=== PATIENT | female | born 1970 | race American Indian/Alaskan Native ===

== ENCOUNTER 2020-09-12 13:22 | Inpatient (IN) | payer OTHER ==
[2020-09-12 13:40] VITALS: BMI 31.8
[2020-09-12] MEDS ORDERED: SODIUM CHLORIDE 1,000 ML IV STA (14:29)
[2020-09-12 15:20] LABS: BASO % 0.2 % (0-2.0); EOS % 0.1 % (0-4.5); HEMATOCRIT 38.5 % (32.4-45.2); HEMOGLOBIN 12.5 GM/dL (10.7-15.3); LYMPH % 15.7 % (8-40); MCH 28.8 pg (25.7-33.7); MCHC 32.4 g/dl (32.0-36.0); MEAN CELL VOLUME 88.8 fl (80-96); MEAN PLT VOLUME 8.5 fl (7.5-11.1); MONO % 4.7 % (3.8-10.2); NEUT % 79.3 % (42.8-82.8); PLATELET COUNT 371 K/MM3 (134-434); RBC 4.34 M/mm3 (3.60-5.2); RDW 13.9 % (11.6-15.6); WHITE BLOOD COUNT 17.1 K/mm3 (4.0-10.0)
[2020-09-12 15:23] LABS: URINE APPEARANCE CLEAR; URINE BILIRUBIN NEGATIVE (NEGATIVE); URINE COLOR YELLOW; URINE GLUCOSE (UA) NEGATIVE (NEGATIVE); URINE KETONE NEGATIVE (NEGATIVE); URINE LEUK ESTERASE NEGATIVE (NEGATIVE); URINE NITRITE NEGATIVE (NEGATIVE); URINE PROTEIN NEGATIVE (NEGATIVE)
[2020-09-12 15:27] LABS: INR 1.15 (0.83-1.09); PROTHROMBIN TIME (PATIENT) 13.8 SEC (9.7-13.0)
[2020-09-12 15:39] LABS: POTASSIUM 3.4 mmol/L (3.5-5.1)
[2020-09-12 15:41] LABS: ALBUMIN 3.2 g/dl (3.4-5.0); CALCIUM 9.4 mg/dL (8.5-10.1)
[2020-09-12 15:42] LABS: BLOOD UREA NITROGEN 5.7 mg/dL (7-18)
[2020-09-12 15:45] LABS: CREATININE 0.6 mg/dL (0.55-1.3)
[2020-09-12 15:46] LABS: BILIRUBIN,TOTAL 0.2 mg/dL (0.2-1); TOT PROT 8.1 g/dl (6.4-8.2)
[2020-09-12] MEDS ORDERED: morphine CARPU-JECT 4 MG/1 ML DISP.SYRIN IVPUSH ONE (16:49)
[2020-09-12] MEDS ORDERED: ONDANSETRON 4 MG/2 ML VIAL IVPUSH ONE (16:49)
[2020-09-12] MEDS ORDERED: PIPERACILLIN/TAZOB 3.375 GM 3.375 GM in DEXTROSE 5%-WATER - 50 ML IVPB ONE (16:49)
[2020-09-12] MEDS ORDERED: ONDANSETRON 4 MG/2 ML VIAL ONE (17:02)
[2020-09-12] MEDS ORDERED: morphine SULFATE 4 MG/ML VIAL ONE (17:02)
[2020-09-12] MEDS ORDERED: PIPERACILLIN/TAZOB 3.375 GM 3.375 GM/50 ML BAG IVPB ONE (17:02)
[2020-09-13] MEDS ORDERED: ONDANSETRON 4 MG/2 ML VIAL IVPUSH PRN (01:09)
[2020-09-13] MEDS ORDERED: morphine CARPU-JECT 2 MG/1 ML DISP.SYRIN IVPUSH PRN (01:09)
[2020-09-13] MEDS ORDERED: MORPHINE SULFATE 2 MG/ML VIAL ONE ×2 (01:35→06:46)
[2020-09-13] MEDS: DEXTROSE 5%-0.45% SALINE 1,000 ML IV SCH ×2 (02:39→17:01)
[2020-09-13] MEDS: MORPHINE SULFATE 2 MG/ML VIAL IVPUSH PRN (06:53)
[2020-09-13 08:21] LABS: BASO % 0.2 % (0-2.0); EOS % 0.2 % (0-4.5); HEMATOCRIT 33.6 % (32.4-45.2); HEMOGLOBIN 10.8 GM/dL (10.7-15.3); LYMPH % 16.1 % (8-40); MCH 28.3 pg (25.7-33.7); MCHC 32.1 g/dl (32.0-36.0); MEAN CELL VOLUME 88.3 fl (80-96); MEAN PLT VOLUME 8.4 fl (7.5-11.1); NEUT % 77.5 % (42.8-82.8); PLATELET COUNT 320 K/MM3 (134-434); RBC 3.81 M/mm3 (3.60-5.2); RDW 13.8 % (11.6-15.6); WHITE BLOOD COUNT 14.8 K/mm3 (4.0-10.0)
[2020-09-13 08:32] LABS: POTASSIUM 3.7 mmol/L (3.5-5.1)
[2020-09-13 08:41] LABS: ALBUMIN 2.5 g/dl (3.4-5.0); BLOOD UREA NITROGEN 3.8 mg/dL (7-18); CALCIUM 8.7 mg/dL (8.5-10.1)
[2020-09-13 08:45] LABS: CREATININE 0.5 mg/dL (0.55-1.3)
[2020-09-13 08:46] LABS: TOT PROT 6.4 g/dl (6.4-8.2)
[2020-09-13 09:17] LABS: BILIRUBIN,TOTAL 0.3 mg/dL (0.2-1)
[2020-09-13] MEDS ORDERED: PIPERACILLIN/TAZOB 3.375 GM 3.375 GM in DEXTROSE 5%-WATER - 50 ML IVPB SCH (10:00)
[2020-09-13] MEDS ORDERED: PIPERACILLIN/TAZOB 3.375 GM 3.375 GM/50 ML BAG IVPB ONE (10:07)
[2020-09-13] MEDS ORDERED: ENOXAPARIN NA (PORCINE) 40 MG/0.4 ML DISP.SYRIN SQ ONE (10:29)
[2020-09-13] MEDS: ENOXAPARIN NA (PORCINE) 40 MG/0.4 ML DISP.SYRIN SQ SCH (10:30)
[2020-09-13] MEDS: PIPERACILLIN/TAZOB 3.375 GM 3.375 GM/50 ML BAG IVPB SCH (18:59)
[2020-09-14] MEDS: MORPHINE SULFATE 2 MG/ML VIAL IVPUSH PRN ×3 (00:45→14:43)
[2020-09-14] MEDS: PIPERACILLIN/TAZOB 3.375 GM 3.375 GM/50 ML BAG IVPB SCH ×3 (01:40→18:28)
[2020-09-14] MEDS: DEXTROSE 5%-0.45% SALINE 1,000 ML IV SCH ×3 (01:42→22:12)
[2020-09-14] MEDS: ENOXAPARIN NA (PORCINE) 40 MG/0.4 ML DISP.SYRIN SQ SCH (09:22)
[2020-09-14 09:24] LABS: BASO % 0.4 % (0-2.0); EOS % 0.5 % (0-4.5); HEMATOCRIT 35.2 % (32.4-45.2); HEMOGLOBIN 11.2 GM/dL (10.7-15.3); LYMPH % 17.7 % (8-40); MCH 28.1 pg (25.7-33.7); MCHC 31.9 g/dl (32.0-36.0); MEAN CELL VOLUME 88.1 fl (80-96); MEAN PLT VOLUME 8.4 fl (7.5-11.1); MONO % 4.4 % (3.8-10.2); PLATELET COUNT 375 K/MM3 (134-434); RBC 3.99 M/mm3 (3.60-5.2); RDW 13.7 % (11.6-15.6); WHITE BLOOD COUNT 15.3 K/mm3 (4.0-10.0)
[2020-09-14 09:33] LABS: POTASSIUM 3.7 mmol/L (3.5-5.1)
[2020-09-14 09:38] LABS: ALBUMIN 2.5 g/dl (3.4-5.0); BLOOD UREA NITROGEN 3.1 mg/dL (7-18)
[2020-09-14 09:42] LABS: CREATININE 0.6 mg/dL (0.55-1.3)
[2020-09-14 09:43] LABS: BILIRUBIN,TOTAL 0.3 mg/dL (0.2-1); TOT PROT 6.6 g/dl (6.4-8.2)
[2020-09-14 09:48] LABS: CALCIUM 8.9 mg/dL (8.5-10.1)
[2020-09-14] MEDS: ACETAMINOPHEN 325 MG TABLET (FP) PO PRN (18:27)
[2020-09-14] MEDS ORDERED: PIPERACILLIN/TAZOB 3.375 GM 3.375 GM/50 ML BAG IVPB SCH (18:45)
[2020-09-14] MEDS: DOCUSATE SODIUM 100 MG CAPSULE (FP) PO SCH (22:12)
[2020-09-15] MEDS: DEXTROSE 5%-0.45% SALINE 1,000 ML IV SCH (01:24)
[2020-09-15] MEDS ORDERED: PIPERACILLIN/TAZOBACTAM 3.375 GM VIAL IVPB ONE ×3 (01:40→17:56)
[2020-09-15] MEDS ORDERED: DEXTROSE 5%-WATER - 50 ML IVPB ONE ×3 (01:40→17:56)
[2020-09-15] MEDS: ACETAMINOPHEN 325 MG TABLET (FP) PO PRN ×3 (01:53→22:03)
[2020-09-15] MEDS: PIPERACILLIN/TAZOB 3.375 GM 3.375 GM in DEXTROSE 5%-WATER - 50 ML IVPB SCH ×3 (01:53→17:58)
[2020-09-15 08:31] LABS: POTASSIUM 3.4 mmol/L (3.5-5.1)
[2020-09-15 08:33] LABS: ALBUMIN 2.4 g/dl (3.4-5.0); CALCIUM 8.8 mg/dL (8.5-10.1)
[2020-09-15 08:34] LABS: BLOOD UREA NITROGEN 3.9 mg/dL (7-18)
[2020-09-15 08:35] LABS: BASO % 0.5 % (0-2.0); EOS % 0.8 % (0-4.5); HEMATOCRIT 35.6 % (32.4-45.2); HEMOGLOBIN 11.5 GM/dL (10.7-15.3); LYMPH % 16.8 % (8-40); MCH 28.6 pg (25.7-33.7); MCHC 32.3 g/dl (32.0-36.0); MEAN CELL VOLUME 88.7 fl (80-96); MEAN PLT VOLUME 8.2 fl (7.5-11.1); MONO % 6.6 % (3.8-10.2); NEUT % 75.3 % (42.8-82.8); PLATELET COUNT 363 K/MM3 (134-434); RBC 4.01 M/mm3 (3.60-5.2); RDW 13.7 % (11.6-15.6); WHITE BLOOD COUNT 11.8 K/mm3 (4.0-10.0)
[2020-09-15 08:37] LABS: CREATININE 0.6 mg/dL (0.55-1.3)
[2020-09-15 08:38] LABS: BILIRUBIN,TOTAL 0.9 mg/dL (0.2-1); TOT PROT 6.6 g/dl (6.4-8.2)
[2020-09-15] MEDS: ENOXAPARIN NA (PORCINE) 40 MG/0.4 ML DISP.SYRIN SQ SCH (10:03)
[2020-09-15] MEDS: MORPHINE SULFATE 2 MG/ML VIAL IVPUSH PRN (20:28)
[2020-09-15] MEDS: DOCUSATE SODIUM 100 MG CAPSULE (FP) PO SCH (22:04)
[2020-09-16] MEDS ORDERED: DEXTROSE 5%-WATER - 50 ML IVPB ONE ×3 (02:16→17:31)
[2020-09-16] MEDS ORDERED: PIPERACILLIN/TAZOBACTAM 3.375 GM VIAL IVPB ONE ×3 (02:16→17:31)
[2020-09-16] MEDS: PIPERACILLIN/TAZOB 3.375 GM 3.375 GM in DEXTROSE 5%-WATER - 50 ML IVPB SCH ×3 (02:27→17:43)
[2020-09-16 09:52] LABS: BASO % 0.3 % (0-2.0); EOS % 1.3 % (0-4.5); HEMATOCRIT 35.6 % (32.4-45.2); HEMOGLOBIN 11.6 GM/dL (10.7-15.3); LYMPH % 18.9 % (8-40); MCHC 32.5 g/dl (32.0-36.0); MEAN CELL VOLUME 89.3 fl (80-96); MEAN PLT VOLUME 8.3 fl (7.5-11.1); MONO % 4.6 % (3.8-10.2); NEUT % 74.9 % (42.8-82.8); PLATELET COUNT 401 K/MM3 (134-434); POTASSIUM 3.6 mmol/L (3.5-5.1); RBC 3.99 M/mm3 (3.60-5.2); RDW 13.8 % (11.6-15.6); WHITE BLOOD COUNT 12.6 K/mm3 (4.0-10.0)
[2020-09-16] MEDS: ENOXAPARIN NA (PORCINE) 40 MG/0.4 ML DISP.SYRIN SQ SCH (10:05)
[2020-09-16] MEDS: DEXTROSE 5%-0.45% SALINE 1,000 ML IV SCH (10:06)
[2020-09-16 10:09] LABS: ALBUMIN 2.6 g/dl (3.4-5.0); CALCIUM 8.9 mg/dL (8.5-10.1)
[2020-09-16 10:13] LABS: CREATININE 0.6 mg/dL (0.55-1.3)
[2020-09-16 10:15] LABS: BILIRUBIN,TOTAL 0.7 mg/dL (0.2-1)
[2020-09-16 10:28] LABS: BLOOD UREA NITROGEN 2.6 mg/dL (7-18)
[2020-09-16] MEDS: ACETAMINOPHEN 325 MG TABLET (FP) PO PRN ×2 (13:19→21:32)
[2020-09-16] MEDS: DOCUSATE SODIUM 100 MG CAPSULE (FP) PO SCH (21:31)
[2020-09-17] MEDS ORDERED: DEXTROSE 5%-WATER - 50 ML IVPB ONE ×3 (02:03→17:03)
[2020-09-17] MEDS ORDERED: PIPERACILLIN/TAZOBACTAM 3.375 GM VIAL IVPB ONE ×3 (02:03→17:03)
[2020-09-17] MEDS: PIPERACILLIN/TAZOB 3.375 GM 3.375 GM in DEXTROSE 5%-WATER - 50 ML IVPB SCH ×3 (02:31→17:52)
[2020-09-17] MEDS: DEXTROSE 5%-0.45% SALINE 1,000 ML IV SCH (09:45)
[2020-09-17] MEDS: ENOXAPARIN NA (PORCINE) 40 MG/0.4 ML DISP.SYRIN SQ SCH (09:48)
[2020-09-17] MEDS: ACETAMINOPHEN 325 MG TABLET (FP) PO PRN ×2 (10:16→21:46)
[2020-09-17] MEDS: DOCUSATE SODIUM 100 MG CAPSULE (FP) PO SCH (21:45)
[2020-09-18] MEDS ORDERED: PIPERACILLIN/TAZOBACTAM 3.375 GM VIAL IVPB ONE ×3 (00:36→16:29)
[2020-09-18] MEDS ORDERED: DEXTROSE 5%-WATER - 50 ML IVPB ONE ×3 (00:36→16:29)
[2020-09-18] MEDS: DEXTROSE 5%-0.45% SALINE 1,000 ML IV SCH ×2 (01:00→05:13)
[2020-09-18] MEDS: PIPERACILLIN/TAZOB 3.375 GM 3.375 GM in DEXTROSE 5%-WATER - 50 ML IVPB SCH ×3 (02:51→17:13)
[2020-09-18 09:12] LABS: BASO % 0.4 % (0-2.0); EOS % 2.7 % (0-4.5); HEMATOCRIT 35.1 % (32.4-45.2); HEMOGLOBIN 11.6 GM/dL (10.7-15.3); INR 1.17 (0.83-1.09); LYMPH % 32.1 % (8-40); MCH 29.4 pg (25.7-33.7); MCHC 33.2 g/dl (32.0-36.0); MEAN CELL VOLUME 88.5 fl (80-96); MEAN PLT VOLUME 8.2 fl (7.5-11.1); MONO % 5.5 % (3.8-10.2); NEUT % 59.3 % (42.8-82.8); PLATELET COUNT 410 K/MM3 (134-434); PROTHROMBIN TIME (PATIENT) 14.1 SEC (9.7-13.0); RBC 3.97 M/mm3 (3.60-5.2); RDW 13.6 % (11.6-15.6); WHITE BLOOD COUNT 7.4 K/mm3 (4.0-10.0)
[2020-09-18 09:29] LABS: POTASSIUM 3.4 mmol/L (3.5-5.1)
[2020-09-18 09:35] LABS: ALBUMIN 2.6 g/dl (3.4-5.0)
[2020-09-18 09:38] LABS: CREATININE 0.5 mg/dL (0.55-1.3)
[2020-09-18 09:40] LABS: BILIRUBIN,TOTAL 0.3 mg/dL (0.2-1); TOT PROT 6.7 g/dl (6.4-8.2)
[2020-09-18 10:15] LABS: BLOOD UREA NITROGEN 2.8 mg/dL (7-18)
[2020-09-18] MEDS: ENOXAPARIN NA (PORCINE) 40 MG/0.4 ML DISP.SYRIN SQ SCH (10:37)
[2020-09-18] MEDS: DOCUSATE SODIUM 100 MG CAPSULE (FP) PO SCH (21:24)
[2020-09-18] MEDS: ACETAMINOPHEN 325 MG TABLET (FP) PO PRN (21:25)
[2020-09-19] MEDS ORDERED: DEXTROSE 5%-WATER - 50 ML IVPB ONE ×3 (00:30→16:48)
[2020-09-19] MEDS ORDERED: PIPERACILLIN/TAZOBACTAM 3.375 GM VIAL IVPB ONE ×3 (00:30→16:48)
[2020-09-19] MEDS: PIPERACILLIN/TAZOB 3.375 GM 3.375 GM in DEXTROSE 5%-WATER - 50 ML IVPB SCH ×3 (01:16→17:53)
[2020-09-19] MEDS: DEXTROSE 5%-0.45% SALINE 1,000 ML IV SCH ×2 (02:12→17:56)
[2020-09-19] MEDS: ENOXAPARIN NA (PORCINE) 40 MG/0.4 ML DISP.SYRIN SQ SCH (10:48)
[2020-09-19] MEDS: ACETAMINOPHEN 325 MG TABLET (FP) PO PRN (17:51)
[2020-09-19] MEDS: DOCUSATE SODIUM 100 MG CAPSULE (FP) PO SCH (21:17)
[2020-09-20] MEDS ORDERED: DEXTROSE 5%-WATER - 50 ML IVPB ONE ×3 (00:36→18:10)
[2020-09-20] MEDS ORDERED: PIPERACILLIN/TAZOBACTAM 3.375 GM VIAL IVPB ONE ×3 (00:36→18:10)
[2020-09-20] MEDS: PIPERACILLIN/TAZOB 3.375 GM 3.375 GM in DEXTROSE 5%-WATER - 50 ML IVPB SCH ×3 (02:00→18:51)
[2020-09-20] MEDS: DEXTROSE 5%-0.45% SALINE 1,000 ML IV SCH (10:51)
[2020-09-20] MEDS: DOCUSATE SODIUM 100 MG CAPSULE (FP) PO SCH (22:20)
[2020-09-21] MEDS ORDERED: DEXTROSE 5%-WATER - 50 ML IVPB ONE ×3 (01:23→17:43)
[2020-09-21] MEDS ORDERED: PIPERACILLIN/TAZOBACTAM 3.375 GM VIAL IVPB ONE ×3 (01:23→17:43)
[2020-09-21] MEDS: PIPERACILLIN/TAZOB 3.375 GM 3.375 GM in DEXTROSE 5%-WATER - 50 ML IVPB SCH ×3 (01:24→17:58)
[2020-09-21] MEDS: DEXTROSE 5%-0.45% SALINE 1,000 ML IV SCH ×2 (06:20→22:04)
[2020-09-21 09:09] LABS: BASO % 0.5 % (0-2.0); EOS % 1.2 % (0-4.5); HEMATOCRIT 35.4 % (32.4-45.2); HEMOGLOBIN 11.8 GM/dL (10.7-15.3); LYMPH % 30.7 % (8-40); MCH 29.4 pg (25.7-33.7); MCHC 33.3 g/dl (32.0-36.0); MEAN CELL VOLUME 88.2 fl (80-96); MEAN PLT VOLUME 8.7 fl (7.5-11.1); MONO % 5.1 % (3.8-10.2); NEUT % 62.5 % (42.8-82.8); PLATELET COUNT 406 K/MM3 (134-434); RBC 4.01 M/mm3 (3.60-5.2); WHITE BLOOD COUNT 7.4 K/mm3 (4.0-10.0)
[2020-09-21 09:23] LABS: POTASSIUM 3.4 mmol/L (3.5-5.1)
[2020-09-21 09:25] LABS: CALCIUM 8.7 mg/dL (8.5-10.1)
[2020-09-21 09:26] LABS: ALBUMIN 2.7 g/dl (3.4-5.0); BLOOD UREA NITROGEN 4.1 mg/dL (7-18)
[2020-09-21 09:29] LABS: CREATININE 0.7 mg/dL (0.55-1.3)
[2020-09-21 09:30] LABS: BILIRUBIN,TOTAL 0.6 mg/dL (0.2-1)
[2020-09-21 09:31] LABS: TOT PROT 6.8 g/dl (6.4-8.2)
[2020-09-21] MEDS: MULTIVITAMINS (DAILY MVI) TABLET (FP) PO SCH (10:05)
[2020-09-21] MEDS ORDERED: POTASSIUM CHLORIDE TABS 20 MEQ TABLET.ER (FP) PO ONE (19:51)
[2020-09-21] MEDS: DOCUSATE SODIUM 100 MG CAPSULE (FP) PO SCH (22:04)
[2020-09-22] MEDS ORDERED: DEXTROSE 5%-WATER - 50 ML IVPB ONE ×2 (01:36→08:23)
[2020-09-22] MEDS ORDERED: PIPERACILLIN/TAZOBACTAM 3.375 GM VIAL IVPB ONE ×2 (01:36→08:23)
[2020-09-22] MEDS: DEXTROSE 5%-0.45% SALINE 1,000 ML IV SCH (01:50)
[2020-09-22] MEDS: PIPERACILLIN/TAZOB 3.375 GM 3.375 GM in DEXTROSE 5%-WATER - 50 ML IVPB SCH ×2 (01:51→10:15)
[2020-09-22 06:59] VITALS: BP 130/68; PULSE 76; TEMP 98
[2020-09-22 08:45] LABS: POTASSIUM 4.4 mmol/L (3.5-5.1)
[2020-09-22 08:51] LABS: ALBUMIN 2.7 g/dl (3.4-5.0); BLOOD UREA NITROGEN 4.8 mg/dL (7-18); CALCIUM 8.7 mg/dL (8.5-10.1)
[2020-09-22 08:55] LABS: BILIRUBIN,TOTAL 0.3 mg/dL (0.2-1); CREATININE 0.6 mg/dL (0.55-1.3); TOT PROT 6.4 g/dl (6.4-8.2)
[2020-09-22] MEDS: MULTIVITAMINS (DAILY MVI) TABLET (FP) PO SCH (10:15)
== END 2020-09-22 14:01 | disposition home or self-care (01) | DRG 531 ==
LOC: JER 13:22 → JERBED 17:12 → J6WEST-2 09-13 15:48 → J6S 09-14 19:42
PROVIDERS: ADMIT Internal Medicine; ATTEND Internal Medicine
DX: N70.93 Salpingitis and oophoritis, unspecified (principal); D72.829 Elevated white blood cell count, unspecified; R50.9 Fever, unspecified; R10.32 Left lower quadrant pain
CPT/HCPCS: 36415; 71046-TC-FY; 71260-TC; 72192-TC; 74177-TC; 76830-TC; 80053; 81003; 85025; 85610; 85730; 87086; 93005; 93010; 99285-25; C9803; Q9967; U0003

== ENCOUNTER 2020-11-23 12:22 | Inpatient (IN) | payer OTHER ==
[2020-11-23 12:43] VITALS: BMI 31.6
[2020-11-23] MEDS ORDERED: DEXAMETHASONE SOD PHOSPHATE 10 MG/1 ML VIAL IVPUSH ONE (13:21)
[2020-11-23] MEDS ORDERED: DEXAMETHASONE SOD PHOSPHATE 10 MG/1 ML VIAL ONE (14:34)
[2020-11-23 15:06] LABS: BASO % 0.2 % (0-2.0); HEMATOCRIT 41.9 % (32.4-45.2); HEMOGLOBIN 14.1 GM/dL (10.7-15.3); MCHC 33.6 g/dl (32.0-36.0); MEAN PLT VOLUME 9.8 fl (7.5-11.1); MONO % 5.1 % (3.8-10.2); NEUT % 69.7 % (42.8-82.8); PLATELET COUNT 153 K/MM3 (134-434); RDW 15.1 % (11.6-15.6); WHITE BLOOD COUNT 5.1 K/mm3 (4.0-10.0)
[2020-11-23 15:25] LABS: CHLORIDE 105 mmol/L (98-107); POTASSIUM 4.5 mmol/L (3.5-5.1); SODIUM 139 mmol/L (136-145)
[2020-11-23 15:27] LABS: ALBUMIN 3.2 g/dl (3.4-5.0); ANION GAP 7 MMOL/L (8-16); BLOOD UREA NITROGEN 6.2 mg/dL (7-18); CALCIUM 8.3 mg/dL (8.5-10.1); CO2 27 mmol/L (21-32); GLUCOSE,RANDOM 143 mg/dL (74-106)
[2020-11-23 15:31] LABS: CREATININE 0.7 mg/dL (0.55-1.3); SGOT/AST 139 U/L (15-37); SGPT/ALT 82 U/L (13-61)
[2020-11-23 15:32] LABS: BILIRUBIN,TOTAL 0.4 mg/dL (0.2-1)
[2020-11-23 15:33] LABS: ALK PHOS 72 U/L (45-117); TOT PROT 7.3 g/dl (6.4-8.2)
[2020-11-23] MEDS ORDERED: ACETAMINOPHEN 500 MG TABLET (FP) PO ONE (16:44)
[2020-11-23] MEDS ORDERED: ALBUTEROL SO4 HFA INHALER IH PRN (22:48)
[2020-11-23 23:59] LABS: EPI CELLS 22 /uL (0-25.1); HYALINE CASTS 85 /uL (0-3.1); URINE APPEARANCE CLOUDY; URINE BACTERIA 654 /uL (0-1359); URINE BILIRUBIN 1+ (NEGATIVE); URINE COLOR DK YELLOW; URINE GLUCOSE (UA) TRACE (NEGATIVE); URINE KETONE 1+ (NEGATIVE); URINE LEUK ESTERASE 2+ (NEGATIVE); URINE NITRITE NEGATIVE (NEGATIVE); URINE PROTEIN 2+ (NEGATIVE); URINE RBC 67 /uL (0-23.9); URINE WBC 416 /uL (0-25.8)
[2020-11-24] MEDS ORDERED: REMDESIVIR 200 MG in SODIUM CHLORIDE 210 ML IVPB ONE (09:41)
[2020-11-24] MEDS: DEXAMETHASONE SOD PHOSPHATE 10 MG/1 ML VIAL IVPUSH SCH (09:47)
[2020-11-24] MEDS: ENOXAPARIN NA (PORCINE) 40 MG/0.4 ML DISP.SYRIN SQ SCH (09:47)
[2020-11-24] MEDS: ACETAMINOPHEN 325 MG TABLET (FP) PO PRN (09:47)
[2020-11-24] MEDS: ASCORBIC ACID 500 MG TABLET (FP) PO SCH (09:49)
[2020-11-24] MEDS: ZINC SULFATE 220 MG CAPSULE (FP) PO SCH (09:49)
[2020-11-24] MEDS: FAMOTIDINE 20 MG TABLET PO SCH ×2 (09:49→21:21)
[2020-11-24] MEDS: CHOLECALCIFEROL (VIT D3) 1,000 UNIT (25 MCG) TABLET PO SCH (09:50)
[2020-11-24] MEDS ORDERED: ACETAMINOPHEN 325 MG TABLET (FP) PO PRN (10:01)
[2020-11-24 10:20] LABS: BASO % 0.7 % (0-2.0); HEMATOCRIT 39.5 % (32.4-45.2); HEMOGLOBIN 13.5 GM/dL (10.7-15.3); LYMPH % 22.2 % (8-40); MCH 30.1 pg (25.7-33.7); MCHC 34.2 g/dl (32.0-36.0); MEAN PLT VOLUME 9.9 fl (7.5-11.1); MONO % 8.6 % (3.8-10.2); NEUT % 68.5 % (42.8-82.8); PLATELET COUNT 171 K/MM3 (134-434); RBC 4.48 M/mm3 (3.60-5.2); RDW 15.5 % (11.6-15.6); WHITE BLOOD COUNT 3.2 K/mm3 (4.0-10.0)
[2020-11-24 10:41] LABS: POTASSIUM 3.8 mmol/L (3.5-5.1)
[2020-11-24 10:45] LABS: CALCIUM 8.2 mg/dL (8.5-10.1)
[2020-11-24 10:47] LABS: ALBUMIN 2.8 g/dl (3.4-5.0); BLOOD UREA NITROGEN 9.2 mg/dL (7-18); MAGNESIUM 2.1 mg/dL (1.8-2.4)
[2020-11-24 10:49] LABS: CREATININE 0.7 mg/dL (0.55-1.3); PHOSPHOROUS 2.2 mg/dL (2.5-4.9)
[2020-11-24 10:52] LABS: BILIRUBIN,TOTAL 0.3 mg/dL (0.2-1); TOT PROT 6.8 g/dl (6.4-8.2)
[2020-11-24 12:03] LABS: EPI CELLS >36 /uL (0-25.1); HYALINE CASTS 4 /uL (0-3.1); URINE APPEARANCE CLOUDY; URINE BACTERIA 2108 /uL (0-1359); URINE BILIRUBIN NEGATIVE (NEGATIVE); URINE COLOR YELLOW; URINE GLUCOSE (UA) 3+ (NEGATIVE); URINE KETONE TRACE (NEGATIVE); URINE LEUK ESTERASE 2+ (NEGATIVE); URINE NITRITE NEGATIVE (NEGATIVE); URINE PROTEIN 1+ (NEGATIVE); URINE RBC 46 /uL (0-23.9); URINE WBC 220 /uL (0-25.8)
[2020-11-25] MEDS ORDERED: BENZOCAINE/MENTH/CETYLPYRD CL 1 EACH LOZENGE MM PRN (06:06)
[2020-11-25] MEDS: guaiFENesin 200 MG/10 ML 10 ML UNIT-DOSE CUPS PO PRN ×2 (06:21→21:20)
[2020-11-25 09:01] LABS: BASO % 0.1 % (0-2.0); HEMATOCRIT 40.1 % (32.4-45.2); HEMOGLOBIN 13.3 GM/dL (10.7-15.3); LYMPH % 23.4 % (8-40); MCH 29.5 pg (25.7-33.7); MCHC 33.3 g/dl (32.0-36.0); MEAN CELL VOLUME 88.8 fl (80-96); MEAN PLT VOLUME 9.8 fl (7.5-11.1); MONO % 13.4 % (3.8-10.2); NEUT % 63.1 % (42.8-82.8); PLATELET COUNT 206 K/MM3 (134-434); RBC 4.51 M/mm3 (3.60-5.2); RDW 15.3 % (11.6-15.6); WHITE BLOOD COUNT 5.1 K/mm3 (4.0-10.0)
[2020-11-25 09:18] LABS: POTASSIUM 3.9 mmol/L (3.5-5.1)
[2020-11-25 09:34] LABS: ALBUMIN 2.6 g/dl (3.4-5.0); BLOOD UREA NITROGEN 14.5 mg/dL (7-18); CALCIUM 8.5 mg/dL (8.5-10.1); MAGNESIUM 2.4 mg/dL (1.8-2.4)
[2020-11-25 09:38] LABS: BILIRUBIN,TOTAL 0.4 mg/dL (0.2-1); CREATININE 0.5 mg/dL (0.55-1.3); PHOSPHOROUS 3.1 mg/dL (2.5-4.9)
[2020-11-25 09:40] LABS: TOT PROT 6.1 g/dl (6.4-8.2)
[2020-11-25] MEDS: DEXAMETHASONE SOD PHOSPHATE 10 MG/1 ML VIAL IVPUSH SCH (10:03)
[2020-11-25] MEDS: ZINC SULFATE 220 MG CAPSULE (FP) PO SCH (10:03)
[2020-11-25] MEDS: ENOXAPARIN NA (PORCINE) 40 MG/0.4 ML DISP.SYRIN SQ SCH (10:04)
[2020-11-25] MEDS: CHOLECALCIFEROL (VIT D3) 1,000 UNIT (25 MCG) TABLET PO SCH (10:04)
[2020-11-25] MEDS: FAMOTIDINE 20 MG TABLET PO SCH ×2 (10:04→21:20)
[2020-11-25] MEDS: ASCORBIC ACID 500 MG TABLET (FP) PO SCH (10:04)
[2020-11-25] MEDS: REMDESIVIR 100 MG in SODIUM CHLORIDE 230 ML IVPB SCH (12:25)
[2020-11-25] MEDS: INSULIN SLIDING SCALE (NOVOLOG) 1 VIAL SQ SCH (16:43)
[2020-11-25] MEDS: INSULIN (LEVEMIR) 100 UNITS/ML UNITS SQ SCH (21:20)
[2020-11-26] MEDS: INSULIN SLIDING SCALE (NOVOLOG) 1 VIAL SQ SCH ×3 (06:30→16:28)
[2020-11-26] MEDS: guaiFENesin 200 MG/10 ML 10 ML UNIT-DOSE CUPS PO PRN ×2 (06:30→13:32)
[2020-11-26 08:55] LABS: BASO % 0.1 % (0-2.0); HEMATOCRIT 39.7 % (32.4-45.2); HEMOGLOBIN 13.4 GM/dL (10.7-15.3); LYMPH % 22.3 % (8-40); MCH 29.6 pg (25.7-33.7); MCHC 33.7 g/dl (32.0-36.0); MEAN CELL VOLUME 87.9 fl (80-96); MEAN PLT VOLUME 9.7 fl (7.5-11.1); MONO % 13.2 % (3.8-10.2); NEUT % 64.4 % (42.8-82.8); PLATELET COUNT 220 K/MM3 (134-434); RBC 4.51 M/mm3 (3.60-5.2); RDW 15.2 % (11.6-15.6); WHITE BLOOD COUNT 5.1 K/mm3 (4.0-10.0)
[2020-11-26 09:30] LABS: ALBUMIN 2.5 g/dl (3.4-5.0)
[2020-11-26 09:31] LABS: BLOOD UREA NITROGEN 14.4 mg/dL (7-18); MAGNESIUM 2.4 mg/dL (1.8-2.4); PHOSPHOROUS 3.3 mg/dL (2.5-4.9)
[2020-11-26] MEDS ORDERED: INSULIN (NOVOLOG) ASPART 100 UNITS/ML 10ML VIAL ONE (09:31)
[2020-11-26 09:32] LABS: BILIRUBIN,TOTAL 0.3 mg/dL (0.2-1)
[2020-11-26 09:34] LABS: CREATININE 0.5 mg/dL (0.55-1.3)
[2020-11-26] MEDS: CHOLECALCIFEROL (VIT D3) 1,000 UNIT (25 MCG) TABLET PO SCH (09:42)
[2020-11-26] MEDS: DEXAMETHASONE SOD PHOSPHATE 10 MG/1 ML VIAL IVPUSH SCH (09:42)
[2020-11-26] MEDS: ENOXAPARIN NA (PORCINE) 40 MG/0.4 ML DISP.SYRIN SQ SCH (09:42)
[2020-11-26] MEDS: INSULIN (LEVEMIR) 100 UNITS/ML UNITS SQ SCH ×2 (09:42→23:06)
[2020-11-26] MEDS: FAMOTIDINE 20 MG TABLET PO SCH ×2 (09:42→23:06)
[2020-11-26] MEDS: REMDESIVIR 100 MG in SODIUM CHLORIDE 230 ML IVPB SCH (09:43)
[2020-11-26] MEDS ORDERED: TOCILIZUMAB IVPB ONE (13:00)
[2020-11-26] MEDS ORDERED: SODIUM CHLORIDE IVPB ONE (13:00)
[2020-11-26] MEDS ORDERED: guaiFENesin/CODEINE 5 ML UNIT-DOSE CUPS PO PRN (14:54)
[2020-11-26] MEDS: guaiFENesin 200 MG/10 ML 10 ML UNIT-DOSE CUPS PO SCH ×2 (18:00→23:15)
[2020-11-27] MEDS: INSULIN SLIDING SCALE (NOVOLOG) 1 VIAL SQ SCH ×3 (06:30→15:47)
[2020-11-27] MEDS: guaiFENesin 200 MG/10 ML 10 ML UNIT-DOSE CUPS PO SCH ×3 (06:30→18:11)
[2020-11-27 09:31] LABS: BASO % 0.1 % (0-2.0); HEMOGLOBIN 14.6 GM/dL (10.7-15.3); MCH 29.9 pg (25.7-33.7); MCHC 33.9 g/dl (32.0-36.0); MEAN CELL VOLUME 88.2 fl (80-96); MEAN PLT VOLUME 9.9 fl (7.5-11.1); MONO % 11.3 % (3.8-10.2); NEUT % 57.6 % (42.8-82.8); PLATELET COUNT 286 K/MM3 (134-434); RBC 4.87 M/mm3 (3.60-5.2); RDW 15.2 % (11.6-15.6); WHITE BLOOD COUNT 6.7 K/mm3 (4.0-10.0)
[2020-11-27] MEDS: CHOLECALCIFEROL (VIT D3) 1,000 UNIT (25 MCG) TABLET PO SCH (09:33)
[2020-11-27] MEDS: DEXAMETHASONE SOD PHOSPHATE 10 MG/1 ML VIAL IVPUSH SCH (09:33)
[2020-11-27] MEDS: FAMOTIDINE 20 MG TABLET PO SCH ×2 (09:33→21:13)
[2020-11-27] MEDS: ENOXAPARIN NA (PORCINE) 40 MG/0.4 ML DISP.SYRIN SQ SCH (09:34)
[2020-11-27] MEDS: INSULIN (LEVEMIR) 100 UNITS/ML UNITS SQ SCH ×2 (09:34→15:47)
[2020-11-27 10:26] LABS: ALBUMIN 2.8 g/dl (3.4-5.0); CALCIUM 8.4 mg/dL (8.5-10.1)
[2020-11-27 10:28] LABS: BLOOD UREA NITROGEN 16.7 mg/dL (7-18)
[2020-11-27 10:29] LABS: CREATININE 0.6 mg/dL (0.55-1.3)
[2020-11-27 10:31] LABS: TOT PROT 6.6 g/dl (6.4-8.2)
[2020-11-27 10:37] LABS: BILIRUBIN,TOTAL 0.7 mg/dL (0.2-1)
[2020-11-27] MEDS: REMDESIVIR 100 MG in SODIUM CHLORIDE 230 ML IVPB SCH (11:51)
[2020-11-28] MEDS: guaiFENesin 200 MG/10 ML 10 ML UNIT-DOSE CUPS PO SCH ×2 (01:15→06:35)
[2020-11-28] MEDS: INSULIN SLIDING SCALE (NOVOLOG) 1 VIAL SQ SCH ×3 (06:35→17:06)
[2020-11-28] MEDS: INSULIN (LEVEMIR) 100 UNITS/ML UNITS SQ SCH ×2 (06:36→17:06)
[2020-11-28 08:42] LABS: BASO % 0.1 % (0-2.0); HEMATOCRIT 39.7 % (32.4-45.2); HEMOGLOBIN 13.5 GM/dL (10.7-15.3); LYMPH % 26.9 % (8-40); MCH 29.8 pg (25.7-33.7); MCHC 34.1 g/dl (32.0-36.0); MEAN CELL VOLUME 87.4 fl (80-96); MEAN PLT VOLUME 9.3 fl (7.5-11.1); MONO % 6.4 % (3.8-10.2); NEUT % 66.6 % (42.8-82.8); RBC 4.54 M/mm3 (3.60-5.2); RDW 14.9 % (11.6-15.6); WHITE BLOOD COUNT 6.2 K/mm3 (4.0-10.0)
[2020-11-28 09:01] LABS: POTASSIUM 4.1 mmol/L (3.5-5.1)
[2020-11-28 09:04] LABS: ALBUMIN 2.6 g/dl (3.4-5.0); BLOOD UREA NITROGEN 14.4 mg/dL (7-18); CALCIUM 8.4 mg/dL (8.5-10.1); MAGNESIUM 2.4 mg/dL (1.8-2.4)
[2020-11-28 09:07] LABS: CREATININE 0.4 mg/dL (0.55-1.3)
[2020-11-28 09:11] LABS: BILIRUBIN,TOTAL 0.5 mg/dL (0.2-1); TOT PROT 5.7 g/dl (6.4-8.2)
[2020-11-28 09:16] LABS: PLATELET COUNT 244 K/MM3 (134-434)
[2020-11-28] MEDS: DEXAMETHASONE SOD PHOSPHATE 10 MG/1 ML VIAL IVPUSH SCH (10:40)
[2020-11-28] MEDS: REMDESIVIR 100 MG in SODIUM CHLORIDE 230 ML IVPB SCH (10:40)
[2020-11-28] MEDS: ENOXAPARIN NA (PORCINE) 40 MG/0.4 ML DISP.SYRIN SQ SCH (10:40)
[2020-11-28] MEDS: FAMOTIDINE 20 MG TABLET PO SCH ×2 (10:40→21:51)
[2020-11-28] MEDS: CHOLECALCIFEROL (VIT D3) 1,000 UNIT (25 MCG) TABLET PO SCH (10:40)
[2020-11-28] MEDS: guaiFENesin/CODEINE 5 ML UNIT-DOSE CUPS PO SCH ×3 (12:24→21:51)
[2020-11-29] MEDS: INSULIN SLIDING SCALE (NOVOLOG) 1 VIAL SQ SCH ×3 (06:39→18:17)
[2020-11-29] MEDS: INSULIN (LEVEMIR) 100 UNITS/ML UNITS SQ SCH ×2 (06:40→18:18)
[2020-11-29] MEDS: guaiFENesin/CODEINE 5 ML UNIT-DOSE CUPS PO SCH (06:40)
[2020-11-29 08:30] LABS: BASO % 0.2 % (0-2.0); EOS % 0.1 % (0-4.5); HEMATOCRIT 39.6 % (32.4-45.2); HEMOGLOBIN 13.5 GM/dL (10.7-15.3); LYMPH % 27.1 % (8-40); MCH 29.9 pg (25.7-33.7); MCHC 34.1 g/dl (32.0-36.0); MEAN CELL VOLUME 87.7 fl (80-96); MEAN PLT VOLUME 9.7 fl (7.5-11.1); MONO % 6.8 % (3.8-10.2); NEUT % 65.8 % (42.8-82.8); PLATELET COUNT 253 K/MM3 (134-434); RBC 4.52 M/mm3 (3.60-5.2); RDW 14.7 % (11.6-15.6); WHITE BLOOD COUNT 6.4 K/mm3 (4.0-10.0)
[2020-11-29 09:00] LABS: CALCIUM 8.4 mg/dL (8.5-10.1)
[2020-11-29 09:01] LABS: ALBUMIN 2.7 g/dl (3.4-5.0); BLOOD UREA NITROGEN 15.5 mg/dL (7-18)
[2020-11-29 09:04] LABS: CREATININE 0.5 mg/dL (0.55-1.3)
[2020-11-29 09:13] LABS: BILIRUBIN,TOTAL 0.4 mg/dL (0.2-1)
[2020-11-29] MEDS: DEXAMETHASONE SOD PHOSPHATE 10 MG/1 ML VIAL IVPUSH SCH (10:51)
[2020-11-29] MEDS: ENOXAPARIN NA (PORCINE) 40 MG/0.4 ML DISP.SYRIN SQ SCH (10:51)
[2020-11-29] MEDS: FAMOTIDINE 20 MG TABLET PO SCH ×2 (10:52→21:37)
[2020-11-29] MEDS: CHOLECALCIFEROL (VIT D3) 1,000 UNIT (25 MCG) TABLET PO SCH (10:52)
[2020-11-29] MEDS: DOCUSATE SODIUM 100 MG CAPSULE (FP) PO SCH ×2 (14:37→21:37)
[2020-11-29] MEDS ORDERED: INSULIN (NOVOLOG) ASPART 100 UNITS/ML 10ML VIAL ONE (17:24)
[2020-11-30] MEDS: INSULIN (LEVEMIR) 100 UNITS/ML UNITS SQ SCH (07:00)
[2020-11-30] MEDS: INSULIN SLIDING SCALE (NOVOLOG) 1 VIAL SQ SCH ×3 (09:23→17:14)
[2020-11-30 09:45] LABS: BASO % 0.2 % (0-2.0); EOS % 0.7 % (0-4.5); HEMATOCRIT 42.6 % (32.4-45.2); HEMOGLOBIN 14.4 GM/dL (10.7-15.3); LYMPH % 24.7 % (8-40); MCH 29.8 pg (25.7-33.7); MCHC 33.9 g/dl (32.0-36.0); MEAN CELL VOLUME 87.9 fl (80-96); MEAN PLT VOLUME 9.7 fl (7.5-11.1); NEUT % 68.4 % (42.8-82.8); PLATELET COUNT 297 K/MM3 (134-434); RBC 4.84 M/mm3 (3.60-5.2); RDW 14.7 % (11.6-15.6); WHITE BLOOD COUNT 7.5 K/mm3 (4.0-10.0)
[2020-11-30 10:09] LABS: CHLORIDE 104 mmol/L (98-107); POTASSIUM 3.7 mmol/L (3.5-5.1); SODIUM 140 mmol/L (136-145)
[2020-11-30 10:19] LABS: ANION GAP 7 MMOL/L (8-16); BLOOD UREA NITROGEN 18.1 mg/dL (7-18); CALCIUM 8.9 mg/dL (8.5-10.1); CO2 29 mmol/L (21-32); GLUCOSE,RANDOM 156 mg/dL (74-106)
[2020-11-30 10:22] LABS: CREATININE 0.6 mg/dL (0.55-1.3); SGOT/AST 15 U/L (15-37); SGPT/ALT 42 U/L (13-61)
[2020-11-30 10:23] LABS: BILIRUBIN,TOTAL 0.6 mg/dL (0.2-1); LDH 316 U/L (84-246)
[2020-11-30 10:24] LABS: ALK PHOS 54 U/L (45-117); TOT PROT 6.2 g/dl (6.4-8.2)
[2020-11-30] MEDS: ENOXAPARIN NA (PORCINE) 40 MG/0.4 ML DISP.SYRIN SQ SCH (11:02)
[2020-11-30] MEDS: DOCUSATE SODIUM 100 MG CAPSULE (FP) PO SCH ×2 (11:08→21:40)
[2020-11-30] MEDS: DEXAMETHASONE SOD PHOSPHATE 10 MG/1 ML VIAL IVPUSH SCH (11:09)
[2020-11-30] MEDS: FAMOTIDINE 20 MG TABLET PO SCH ×2 (11:09→21:31)
[2020-11-30] MEDS: CHOLECALCIFEROL (VIT D3) 1,000 UNIT (25 MCG) TABLET PO SCH (11:10)
[2020-11-30] MEDS: ACETAMINOPHEN 325 MG TABLET (FP) PO PRN ×2 (11:11→21:31)
[2020-11-30] MEDS ORDERED: BISACODYL 10 MG SUPP.RECT PR ONE (11:42)
[2020-11-30] MEDS ORDERED: BISACODYL 5 MG TABLET.DR (FP) PO ONE (11:42)
[2020-12-01] MEDS: INSULIN (LEVEMIR) 100 UNITS/ML UNITS SQ SCH ×2 (06:21→17:48)
[2020-12-01] MEDS: INSULIN SLIDING SCALE (NOVOLOG) 1 VIAL SQ SCH ×3 (06:21→17:47)
[2020-12-01 09:03] LABS: BASO % 0.7 % (0-2.0); EOS % 0.7 % (0-4.5); HEMATOCRIT 43.7 % (32.4-45.2); HEMOGLOBIN 14.9 GM/dL (10.7-15.3); LYMPH % 20.4 % (8-40); MCH 29.8 pg (25.7-33.7); MCHC 34.1 g/dl (32.0-36.0); MEAN CELL VOLUME 87.3 fl (80-96); MEAN PLT VOLUME 9.9 fl (7.5-11.1); MONO % 5.8 % (3.8-10.2); NEUT % 72.4 % (42.8-82.8); PLATELET COUNT 362 K/MM3 (134-434); RBC 5.01 M/mm3 (3.60-5.2); RDW 14.8 % (11.6-15.6); WHITE BLOOD COUNT 11.5 K/mm3 (4.0-10.0)
[2020-12-01 09:22] LABS: CHLORIDE 102 mmol/L (98-107); POTASSIUM 4.1 mmol/L (3.5-5.1); SODIUM 139 mmol/L (136-145)
[2020-12-01 09:26] LABS: ALBUMIN 3.3 g/dl (3.4-5.0); CALCIUM 9.1 mg/dL (8.5-10.1)
[2020-12-01 09:27] LABS: ANION GAP 9 MMOL/L (8-16); CO2 28 mmol/L (21-32); GLUCOSE,RANDOM 163 mg/dL (74-106); MAGNESIUM 2.5 mg/dL (1.8-2.4)
[2020-12-01 09:29] LABS: CREATININE 0.7 mg/dL (0.55-1.3); SGOT/AST 12 U/L (15-37); SGPT/ALT 42 U/L (13-61)
[2020-12-01 09:30] LABS: PHOSPHOROUS 3.7 mg/dL (2.5-4.9)
[2020-12-01 09:31] LABS: BILIRUBIN,TOTAL 0.7 mg/dL (0.2-1); LDH 301 U/L (84-246); TOT PROT 6.7 g/dl (6.4-8.2)
[2020-12-01 09:32] LABS: ALK PHOS 57 U/L (45-117)
[2020-12-01] MEDS: DEXAMETHASONE SOD PHOSPHATE 10 MG/1 ML VIAL IVPUSH SCH (11:01)
[2020-12-01] MEDS: ENOXAPARIN NA (PORCINE) 40 MG/0.4 ML DISP.SYRIN SQ SCH (11:01)
[2020-12-01] MEDS: DOCUSATE SODIUM 100 MG CAPSULE (FP) PO SCH ×2 (11:02→21:46)
[2020-12-01] MEDS: CHOLECALCIFEROL (VIT D3) 1,000 UNIT (25 MCG) TABLET PO SCH (11:02)
[2020-12-01] MEDS: FAMOTIDINE 20 MG TABLET PO SCH ×2 (11:02→21:47)
[2020-12-01] MEDS: ACETAMINOPHEN 325 MG TABLET (FP) PO PRN (14:56)
[2020-12-01] MEDS ORDERED: INSULIN (NOVOLOG) ASPART 100 UNITS/ML 10ML VIAL ONE (17:54)
[2020-12-01] MEDS ORDERED: POLYETHYLENE GLYCOL 3350 119 GM BTL PO ONE (23:36)
[2020-12-02] MEDS: INSULIN SLIDING SCALE (NOVOLOG) 1 VIAL SQ SCH ×2 (06:34→12:42)
[2020-12-02] MEDS: INSULIN (LEVEMIR) 100 UNITS/ML UNITS SQ SCH (06:35)
[2020-12-02 09:09] LABS: BASO % 0.3 % (0-2.0); EOS % 0.6 % (0-4.5); HEMATOCRIT 40.4 % (32.4-45.2); HEMOGLOBIN 13.9 GM/dL (10.7-15.3); LYMPH % 33.1 % (8-40); MCH 30.1 pg (25.7-33.7); MCHC 34.4 g/dl (32.0-36.0); MEAN CELL VOLUME 87.4 fl (80-96); MEAN PLT VOLUME 9.4 fl (7.5-11.1); MONO % 7.9 % (3.8-10.2); NEUT % 58.1 % (42.8-82.8); PLATELET COUNT 289 K/MM3 (134-434); RBC 4.62 M/mm3 (3.60-5.2); RDW 14.8 % (11.6-15.6); WHITE BLOOD COUNT 6.3 K/mm3 (4.0-10.0)
[2020-12-02 09:33] LABS: BLOOD UREA NITROGEN 13.9 mg/dL (7-18); CALCIUM 8.8 mg/dL (8.5-10.1); MAGNESIUM 2.5 mg/dL (1.8-2.4)
[2020-12-02 09:36] LABS: CREATININE 0.5 mg/dL (0.55-1.3); PHOSPHOROUS 3.5 mg/dL (2.5-4.9)
[2020-12-02 09:37] LABS: BILIRUBIN,TOTAL 0.6 mg/dL (0.2-1); TOT PROT 6.1 g/dl (6.4-8.2)
[2020-12-02] MEDS ORDERED: MULTIVITAMINS THER W-MINERALS COMBO TABLET (FP) PO SCH (10:00)
[2020-12-02] MEDS ORDERED: POLYETHYLENE GLYCOL 3350 119 GM BTL PO SCH (10:00)
[2020-12-02] MEDS ORDERED: PT OWN MED DRAWER 7, Y5N ONE (10:23)
[2020-12-02] MEDS: FAMOTIDINE 20 MG TABLET PO SCH (10:34)
[2020-12-02] MEDS: CHOLECALCIFEROL (VIT D3) 1,000 UNIT (25 MCG) TABLET PO SCH (10:34)
[2020-12-02] MEDS: DOCUSATE SODIUM 100 MG CAPSULE (FP) PO SCH (10:34)
[2020-12-02] MEDS: ENOXAPARIN NA (PORCINE) 40 MG/0.4 ML DISP.SYRIN SQ SCH (10:49)
[2020-12-02] MEDS: DEXAMETHASONE SOD PHOSPHATE 10 MG/1 ML VIAL IVPUSH SCH (13:24)
[2020-12-02 14:34] VITALS: BP 117/61; PULSE 77; TEMP 97.5
== END 2020-12-02 16:56 | disposition home or self-care (01) | DRG 137 ==
LOC: JER 12:22 → JERBED 18:57 → J6S 21:46
PROVIDERS: ADMIT Internal Medicine; ATTEND Internal Medicine
PROC: XW033E5 Introduction of Remdesivir Anti-infective into Peripheral Vein, Percutaneous Approach, New Technology Group 5 (ICD-10-PCS; principal; 2020-11-24)
PROC: XW033H5 Introduction of Tocilizumab into Peripheral Vein, Percutaneous Approach, New Technology Group 5 (ICD-10-PCS; 2020-11-26)
DX: U07.1 COVID-19 (principal); J12.82 Pneumonia due to coronavirus disease 2019; J96.01 Acute respiratory failure with hypoxia; R50.9 Fever, unspecified; N70.93 Salpingitis and oophoritis, unspecified; K76.0 Fatty (change of) liver, not elsewhere classified; R16.0 Hepatomegaly, not elsewhere classified; E11.9 Type 2 diabetes mellitus without complications; K59.09 Other constipation
CPT/HCPCS: 36415; 71046-TC-FY; 76705-TC; 80048; 80053; 81003; 82308; 82550; 82553; 82728; 82962; 83036; 83615; 83735; 84100; 84484; 85025; 85379; 85384; 86140; 86480; 86769; 86850; 86900; 86901; 87040; 87077; 87086; 87804; 87899; 93005; 93010; 94761; 97116-GP; 97161-GP; 99285-25; C9399; C9803; J1100; J3262; U0003

== ENCOUNTER 2024-02-07 21:20 | Emergency (ER) | payer OTHER ==
[2024-02-07 21:25] VITALS: BP 161/105; PULSE 102; RESP 20; TEMP 98.2; BMI 31.8
[2024-02-07] MEDS ORDERED: POLYETHYLENE GLYCOL (HEALTHYLAX) 3350 17 GM PACKET ONE (22:49)
[2024-02-07] MEDS ORDERED: ACETAMINOPHEN 325 MG TABLET (FP) ONE (22:50)
[2024-02-07 23:05] LABS: BASO % 0.5 % (0-2.0); EOS % 0.5 % (0-4.5); HEMATOCRIT 37.1 % (32.4-45.2); HEMOGLOBIN 12.5 GM/dL (10.7-15.3); LYMPH % 27.3 % (8-40); MCH 29.6 pg (25.7-33.7); MCHC 33.7 g/dl (32.0-36.0); MEAN CELL VOLUME 87.7 fl (80-96); MEAN PLT VOLUME 8.9 fl (7.5-11.1); MONO % 5.3 % (3.8-10.2); NEUT % 66.4 % (42.8-82.8); PLATELET COUNT 264 10^3/uL (134-434); RBC 4.23 M/mm3 (3.60-5.2); RDW 14.5 % (11.6-15.6); WHITE BLOOD COUNT 11.8 K/mm3 (4.0-10.0)
[2024-02-07] MEDS: ACETAMINOPHEN 500 MG TABLET (FP) PO ONE (23:08)
[2024-02-07] MEDS: ACETAMINOPHEN 325 MG TABLET (FP) PO ONE (23:08)
[2024-02-07] MEDS: POLYETHYLENE GLYCOL (HEALTHYLAX) 3350 17 GM PACKET PO ONE (23:08)
[2024-02-07 23:11] LABS: URINE APPEARANCE CLEAR; URINE BILIRUBIN NEGATIVE (NEGATIVE); URINE COLOR YELLOW; URINE GLUCOSE (UA) NEGATIVE (NEGATIVE); URINE KETONE NEGATIVE (NEGATIVE); URINE LEUK ESTERASE NEGATIVE (NEGATIVE); URINE NITRITE NEGATIVE (NEGATIVE); URINE PROTEIN NEGATIVE (NEGATIVE); URINE UROBILINOGEN 0.2 mg/dL (0.2-1.0)
[2024-02-07 23:22] LABS: POTASSIUM 3.9 mmol/L (3.5-5.1)
[2024-02-07 23:26] LABS: CALCIUM 9.4 mg/dL (8.5-10.1)
[2024-02-07 23:27] LABS: ALBUMIN 3.3 g/dl (3.4-5.0); BLOOD UREA NITROGEN 13.5 mg/dL (7-18)
[2024-02-07 23:29] LABS: CREATININE 0.6 mg/dL (0.55-1.3)
[2024-02-07 23:31] LABS: BILIRUBIN,TOTAL 0.3 mg/dL (0.2-1); TOT PROT 6.6 g/dl (6.4-8.2)
[2024-02-08] MEDS ORDERED: LIDOCAINE 4% PATCH TP ONE ×2 (00:07→00:34)
[2024-02-08] MEDS ORDERED: LIDOCAINE PATCH REMOVAL MC SCH (22:00)
== END 2024-02-08 00:42 | disposition home or self-care (01) ==
LOC: JER 21:20
DX: M54.50 Low back pain, unspecified (principal); K59.00 Constipation, unspecified
CPT/HCPCS: 36415; 80053; 81003; 85025; 87086; 99283-25

== ENCOUNTER 2024-04-03 04:24 | Day surgery (SDC) | payer OTHER ==
[2024-03-30 15:50] VITALS: BMI 29.0
[2024-04-03] MEDS ORDERED: PROMETHAZINE HCL 25 MG/1 ML VIAL IVPB PRN (10:55)
[2024-04-03] MEDS ORDERED: ONDANSETRON 4 MG/2 ML VIAL IVPUSH PRN (10:55)
[2024-04-03] MEDS ORDERED: oxyCODONE HCL 5 MG TABLET PO PRN (10:55)
[2024-04-03] MEDS ORDERED: ACETAMINOPHEN 325 MG TABLET (FP) PO PRN (11:11)
[2024-04-03] MEDS ORDERED: IBUPROFEN 400 MG TABLET (FP) PO PRN (11:11)
[2024-04-03] MEDS ORDERED: MIDAZOLAM HCL 2 MG/2 ML SINGLE DOSE VIAL ONE (11:58)
[2024-04-03] MEDS ORDERED: PROPOFOL 20 ML ONE ×2 (11:58→13:53)
[2024-04-03] MEDS ORDERED: LIDOCAINE HCL/PF 2% SDV 5ML VIAL ONE (11:59)
[2024-04-03] MEDS ORDERED: DEXAMETHASONE SOD PHOSPHATE 4 MG/1 ML VIAL ONE (12:00)
[2024-04-03] MEDS ORDERED: ONDANSETRON 4 MG/2 ML VIAL ONE (12:00)
[2024-04-03] MEDS ORDERED: SODIUM CHLORIDE 0.9% P/F 10 ML VIAL IJ ONE (12:00)
[2024-04-03] MEDS ORDERED: ceFAZolin SODIUM 1 GM VIAL ONE ×2 (12:00→13:08)
[2024-04-03] MEDS ORDERED: ACETAMINOPHEN INJECTION 100 ML IVPB ONE (12:01)
[2024-04-03] MEDS: ceFAZolin SODIUM 1 GM VIAL IVPB ONE (13:13)
[2024-04-03] MEDS ORDERED: KETOROLAC TROMETHAMINE 30 MG/1 ML VIAL ONE (13:19)
[2024-04-03] MEDS: LACTATED RINGERS SOLUTION 1,000 ML IV SCH (14:01)
[2024-04-03 15:06] VITALS: RESP 18; TEMP 97.8
[2024-04-03 16:16] VITALS: BP 137/80; PULSE 81
== END 2024-04-03 15:50 | disposition home or self-care (01) ==
LOC: JASU-SURG 04:24
PROVIDERS: ATTEND Obstetrics & Gynecology
PROC: 0UDB8ZX Extraction of Endometrium, Via Natural or Artificial Opening Endoscopic, Diagnostic (ICD-10-PCS; principal; 2024-04-03 10:30)
DX: D25.0 Submucous leiomyoma of uterus (principal); N95.0 Postmenopausal bleeding; N85.00 Endometrial hyperplasia, unspecified
CPT/HCPCS: 82962; 88305-TC; 94760; J0131